=== PATIENT | female | born 1960 | race Caucasian/White ===

== ENCOUNTER → 2022-07-26 14:22 | Outpatient (BNVA) | payer MEDICARE, OTHER, SELFPAY | PROVIDERS: PCP Internal Medicine; Visit Provider Internal Medicine Pulmonary Disease | DX: J44.9 Chronic obstructive pulmonary disease, unspecified (principal); R91.8 Other nonspecific abnormal finding of lung field | CPT/HCPCS: 99212 ==

== ENCOUNTER 2022-09-02 15:00 | Outpatient (REF) | payer MEDICARE, OTHER, SELFPAY ==
--- NOTE | ~2022-09-02 | CT_ITS ---
EXAMINATION: CT CHEST WITHOUT CONTRAST CLINICAL INFORMATION: Follow-up pulmonary nodules COMPARISON: Previous chest CT April 2020 TECHNIQUE: Multidetector volumetric CT imaging of the chest was done. Axial MIP volume rendering provided. Sagittal and coronal reformatted images were obtained. This CT examination was performed using dose optimization techniques as appropriate, variously including the following: *Automated exposure control *Adjustment of mA and/or kV according to patient size (this includes techniques or standardized protocols for targeted exams where dose is matched to indication/reason for exam; i.e. extremities or head) *Use of iterative reconstruction technique DLP: 136 mGy-cm FINDINGS: LUNGS: There is question of slight interval increase in size in left lower lobe nodule measuring 5 mm axial image 358 series 7 compared to 4 mm on prior exam. There is a new 5 mm axial image 232 series 7 right upper lobe nodule probably related to bronchial soft tissue opacification. Otherwise bilateral pulmonary nodules are stable. There is evidence of mild paraseptal emphysema. There are scattered areas of bronchial wall thickening and soft tissue opacification. No endobronchial or endotracheal lesion. MEDIASTINUM: Coronary artery and aortic valve calcification. The mediastinum is otherwise normal. CORONARY ARTERY CALCIFICATION: Mild PLEURA: There is no pleural effusion. No pleural mass or thickening. AXILLA: No lymphadenopathy. UPPER ABDOMEN: Unremarkable. OSSEOUS STRUCTURES: Unremarkable. CT/CT chest wo IV con IMPRESSION: Question slight increase size now 5 mm left lower lobe nodule compared to 4 mm on prior exams. Otherwise bilateral pulmonary nodules are stable. Mild emphysema. Fleischner guidelines were followed.
== END 2022-09-02 15:01 | disposition home or self-care (01) ==
LOC: HO.CT 15:00
PROVIDERS: Visit Provider Internal Medicine Pulmonary Disease
DX: R91.8 Other nonspecific abnormal finding of lung field (principal)
CPT/HCPCS: 71250

== ENCOUNTER → 2022-09-03 15:03 | Outpatient (BNVA) | payer MEDICARE, OTHER, SELFPAY | PROVIDERS: PCP Internal Medicine; Referring Provider Internal Medicine; Visit Provider Internal Medicine | DX: K64.9 Unspecified hemorrhoids (principal); K62.5 Hemorrhage of anus and rectum; K59.02 Outlet dysfunction constipation | CPT/HCPCS: 99202 ==

== ENCOUNTER 2022-09-06 16:07 | Emergency (ER) | payer MEDICARE, OTHER, SELFPAY ==
--- NOTE | 2022-09-06 | ECG_ITS ---
Test Reason : SOB Blood Pressure : / mmHG Vent. Rate : 089 BPM Atrial Rate : 089 BPM P-R Int : 180 ms QRS Dur : 086 ms QT Int : 376 ms P-R-T Axes : 084 077 075 degrees QTc Int : 457 ms Normal sinus rhythm RSR' or QR pattern in V1 suggests right ventricular conduction delay Otherwise normal ECG No previous ECGs available Referred By: Generic ED Physician Electronically Signed By:MIN MARTINEZ MD
--- NOTE | ~2022-09-06 | XR_ITS ---
EXAMINATION: XR CHEST CLINICAL INFORMATION: Short of breath COMPARISON: CT 09/02/2022 TECHNIQUE: 2 views of the chest were obtained. FINDINGS: The lungs are well expanded. There is no focal consolidation, edema, or effusion. No pneumothorax. The cardiomediastinal silhouette is within normal limits of size with a calcified aorta. No acute osseous abnormality. XR/XR chest 2V IMPRESSION: No acute pulmonary finding.
[2022-09-06 16:10] VITALS: BP 150/80; PULSE 91; RESP 20; TEMP 37.1; O2SAT 98; BMI 23.9
[2022-09-06 16:28] LABS: MANUAL DIFF FLAG NO
[2022-09-06 16:30] LABS: Basophils Absolute Auto 0.1 X10*3/uL (0.0-0.2); Basophils Percent Auto 0.9 % (0-2); Eosinophils Absolute Auto 0.1 X10*3/uL (0.0-0.4); Eosinophils Percent Auto 2.2 % (0-4); Hematocrit 41.3 % (37.0-47.0); Hemoglobin 13.8 g/dl (12.0-16.0); Imm Gran Abs Auto 0.01 X10*3/uL (0.00-0.03); Imm Gran Pct Auto 0.2 % (0.0-0.4); Lymphocytes Absolute Auto 1.3 X10*3/uL (1.2-4.9); Lymphocytes Percent Auto 23.7 % (20-40); Mean Corpuscular HGB Conc 33.4 g/dl (31.0-35.0); Mean Corpuscular Hemoglobin 30.7 pg (27.0-33.0); Mean Platelet Volume 10.8 fL (9.4-12.3); Monocytes Absolute Auto 0.5 X10*3/uL (0.1-1.2); Monocytes Percent Auto 8.7 % (2-11); Neutrophils Absolute Auto 3.5 x10*3/uL (2.0-8.3); Neutrophils Percent Auto 64.3 % (45-73); Platelet Count 268 X10*3/uL (160-400); Red Blood Count 4.49 X10*6/uL (4.20-5.50); White Blood Count 5.5 X10*3/uL (4.8-10.8)
[2022-09-06 16:43] LABS: Anion Gap 15 (12-20); Blood Urea Nitrogen 13 mg/dL (9-16); Calcium 9.6 mg/dL (8.4-10.2); Carbon Dioxide 26 mmol/L (22-29); Chloride 106 mmol/L (96-108); Creatinine Clr Calc Pharmacy 71.2; Estimated Glomerular Filt Rate > 60; Glucose Random 91 mg/dL (60-115); Potassium 4.4 mmol/L (3.3-5.1); Sodium 143 mmol/L (135-145)
[2022-09-06 16:50] LABS: B Type Natriuretic Peptide 25 pg/mL (<100); Troponin-I High Sensitivity < 3.5 ng/L (<3.5-17.0)
== END 2022-09-06 22:34 | disposition left against medical advice (07) ==
PROVIDERS: Emergency Provider Emergency Medicine; PCP Internal Medicine
DX: R06.02 Shortness of breath (principal); Z79.899 Other long term (current) drug therapy
CPT/HCPCS: 36415; 71046; 80048; 83880; 84484; 85025; 93005; 94618; 99212; 99281; 99283

== ENCOUNTER 2023-06-11 10:01 | Outpatient (REF) | payer MEDICARE, MEDICAID, SELFPAY ==
[2023-06-11 14:31] LABS: Basophils Percent Auto 0.1 % (0-2); Hematocrit 44.8 % (37.0-47.0); Hemoglobin 14.8 g/dl (12.0-16.0); Imm Gran Abs Auto 0.04 X10*3/uL (0.00-0.03); Imm Gran Pct Auto 0.5 % (0.0-0.4); Lymphocytes Absolute Auto 0.5 X10*3/uL (1.2-4.9); Lymphocytes Percent Auto 6.6 % (20-40); MANUAL DIFF FLAG SCAN; Mean Corpuscular Hemoglobin 30.8 pg (27.0-33.0); Mean Corpuscular Volume 93.1 fL (80.0-98.0); Mean Platelet Volume 10.9 fL (9.4-12.3); Monocytes Absolute Auto 0.2 X10*3/uL (0.1-1.2); Monocytes Percent Auto 2.5 % (2-11); Neutrophils Absolute Auto 6.6 x10*3/uL (2.0-8.3); Neutrophils Percent Auto 90.3 % (45-73); Platelet Count 370 X10*3/uL (160-400); Red Blood Count 4.81 X10*6/uL (4.20-5.50); Red Cell Distribution Width 13.4 % (11.0-16.0); SCAN SMEAR FLAG 1; White Blood Count 7.3 X10*3/uL (4.8-10.8)
[2023-06-11 14:49] LABS: Estimated Average Glucose 103 mg/dL; Hemoglobin A1c % 5.2 %
[2023-06-11 14:59] LABS: SLIDE REVIEW VERIFIED
[2023-06-11 15:33] LABS: Alanine Aminotransferase 22 U/L (0-31); Albumin Level 4.2 g/dL (3.5-5.0); Alkaline Phosphatase 95 U/L (39-117); Anion Gap 16 (12-20); Aspartate Amino Transferase 21 U/L (5-31); Bilirubin Total 0.5 mg/dL (0.0-1.0); Blood Urea Nitrogen 12 mg/dL (9-16); Calcium 9.9 mg/dL (8.4-10.2); Carbon Dioxide 30 mmol/L (22-29); Chloride 101 mmol/L (96-108); Cholesterol 204 mg/dL; Estimated Glomerular Filt Rate > 60; Glucose Fasting 119 mg/dL (60-99); HDL Cholesterol 76 mg/dL; LDL Cholesterol Calculated 115 mg/dl; Potassium 4.1 mmol/L (3.3-5.1); Sodium 143 mmol/L (135-145); Total Protein 7.2 g/dL (6.5-8.0); Triglycerides 69 mg/dL
[2023-06-11 15:34] LABS: TSH reflex Free T4 0.36 uIU/mL (0.32-4.0)
[2023-06-14 19:44] LABS: HCV Log PCR <1.18 NOT DETECTED Log IU/mL (NOT DETECTED); HepC Viral Load <15 NOT DETECTED IU/mL (NOT DETECTED)
== END 2023-06-11 10:02 | disposition home or self-care (01) ==
LOC: HO.CHCLDS 10:01
PROVIDERS: Visit Provider Internal Medicine
DX: J41.8 Mixed simple and mucopurulent chronic bronchitis (principal); E64.0 Sequelae of protein-calorie malnutrition; F17.200 Nicotine dependence, unspecified, uncomplicated; Z86.39 Personal history of other endocrine, nutritional and metabolic disease
CPT/HCPCS: 36415; 80053; 80061; 83036; 84443; 85025; 87522

== ENCOUNTER 2025-05-11 10:12 | Outpatient (REF) | payer MEDICARE, MEDICAID, SELFPAY ==
--- OUTSIDE RECORDS SUMMARY | 2025-05-11 11:01 | XMS_ITS | Encounter Summary ---
Author Organization [employer] Address [address] [place] [address] Care Team Providers Care Environmental Services Associate Name Role Phone Darius Pink MD Primary Care Prov ider Encounter Details Date Type Department Care Team (Late st Contact Info) Description 04/30/2023 Orders Only [facility] [address] [place] [address] Julianne Mcgovern LPN Social History Tobacco Use Types Packs/Day Years Used Date Smoking Tobacco: Never Assessed Comments Unknown Sex and Gender Information Value Date Recorded Sex Assigned at Female 09/02/2022 10:24 AM EDT Legal Sex Female 10:24 AM EDT Gender Identity Female 09/02/2022 10:24 AM EDT Sexual Orientation Straight 09/02/2022 10 :24 AM EDT documented as of this encounter Plan of Treatment Not on file documented as of this encounter Procedures Procedure Name Priority Date/Time Associated Diagnosis Comments COMPREHENSIVE METABOLIC PANEL, FASTING Routine 06/11/2023 10:09 AM EDT SLIDE REVIEW Routine 06/11/2023 10:09 AM EDT documented in this encounter Results * (ABNORMAL) Comprehensive Metabolic Panel, Fasting (06/11/2023 10:09 AM EDT) Sodium 143 135 - 145 mmol/L [facility] Potassium 4.1 3.3 - 5.1 mmol/L [facility] Chloride 101 96 - 108 mmol/L [facility] Carbon Dioxide 30(H) 22 - 29 mmol/L [facility] Anion Gap 16 12 - 20 [facility] Urea Nitrogen (BUN) 12 9 - 16 mg/dL [facility] Creatinine, Serum 0.72 0.5 - 1.4 mg/dL [facility] Estimated Glomerular Filt Rate >60 [facility] Comment:NOTE: For -Am erican individuals, multiply the result by 1.210.Chronic Kidney Disease: Estimated GFR < 60 mL/min/[id number] Kidney Disease: Estimated GFR < 15 mL/min/1.73m2 Glucose Fasting 119(H) 60 - 99 mg/dL [facility] Comment:A fasting glucose fr om 100-125 mg/dl is considered impaired(pre-diabetes). Calcium 9.9 8.4 - 10.2 mg/dL [facility] Bilirubin, Total 0.5 0.0 - 1.0 mg/dL [facility] Aspartate Amino Transferase 21 5 - 31 U/L [facility] Alanine Aminotransferase 22 0 - 31 U/L [facility] Total Protein 7.2 6.5 - 8.0 g/dL [facility] Albumin Level 4.2 3.5 - 5.0 g/dL [facility] Alkaline Phosphatase 95 39 - 117 U/L [facility] 06/11/2023 10:0 9 AM EDT 06/11/2023 2:23 PM EDT us Darius Toussaint MD LAB BLOOD ORDERABL ES Final Result Performing Organization Address [facility] Co de Phone Number [facility] [address] [place] [phone] * Slide Review (06/11/2023 10:09 AM EDT) Slide Review VERIFIED [facility] 06/11/2023 10:0 9 AM EDT 06/11/2023 2:23 PM EDT Darius Toussaint MD LAB BLOOD ORDERABL ES Final Result Performing Organization Address [facility]/State/ZIP Co de Phone Number [facility] [address] [place] [address] [phone] documented in this encounter Visit Diagnoses Not on filedocumented in this encounter Care Teams Environmental Services Associate Relationship Specialty Start Date End Date Darius Pink MD [address] [place] [phone] PCP - General Internal Medicine 03/15/20 documented as of this encounter
--- OUTSIDE RECORDS SUMMARY | 2025-05-11 11:01 | XMS_ITS | Clinical Summary ---
Author Organization [facility] [address] [facility] Address [address] [place] [address] Phone Care Team Providers Care Chief Psychology Name Role Phone Darius Pink Primary Care Provide r Allergies No known active allergies Medications albuterol 2.5 mg/0.5 mL solution for nebulization nebulizer solution Inhale. Active amitriptyline (ELAVIL) 75 mg tablet Take by mouth at bedtime. Active budesonide-formot Javier (SYMBICORT) 80-4.5 mcg/actuation inhaler Inhale 2 puffs by mouth. Active carBAMazepine (TEGretol) 200 mg tablet Take 1 tablet (200 mg total) by mouth. Active divalproex (DEPAKOTE ER) 500 mg 24 hr tablet Take 1 tablet (500 mg total) by mouth daily. 4 Active furosemide (LASIX) 40 mg tablet Take 1 tablet (40 mg total) by mouth 1 (one) time each day. Active gabapentin (NEURONTIN) 300 mg capsule Take 1 capsule (300 mg total) by mouth 2 (two) times a day. Active omeprazole (PriLOSEC) [address] capsule Take 1 capsule (20 mg total) by mouth 1 (one) time each day. 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 08/04/2023 Absent pedal pulses 08/04/2023 Lumbar spine pain 08/04/2023 Asthma 08/04/2023 COPD (chronic obstructive pu lmonary disease) ([facility] [place], [facility] V28) 08/04/2023 Bilateral leg pain 06/11/2023 Overview (01/09/2024): Last Assessment & Plan: Chronic smoker with bilateral PVD dx changes, refers having pain on both extremities, will refer to vascular sx for evaluation for claudication 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 ([facility] [place]24, [facility] V28) 06/11/2023 Overview (01/09/2024): Last Assessment & Plan: Followed by pneumologist, she will start pulmonary rehab Smoker 06/11/2023 Snoring 06/11/2023 Overview (01/09/2024): Last Assessment & Plan: Will refer for sleep apnea Encounters Date Type Department Care Team Description 04/10/2025 8:41 AM EDT - 04/10/2025 11:59 PM EDT Hospital Encounter [facility] MRI [address] [place] [address] Discharge Disposition: Home or Self Care from Last 3 Months Surgical History Surgery Date Site/Laterality Comments OTHER SURGICAL HISTORY PROCEDURE: [place] CRANIOPLASTY SKULL DEFECT REPARATIVE BRAIN SURG; COMMENT: 2000- ruptured R cerebral aneurysm x2 Social History Tobacco Use Types Packs/Day Years Used Date Smoking Tobacco: Former Cigarettes 3 56 0 11/03/1962 - 11/03/2018 Comments Unknown Sex and Gender Information Value Date Recorded Sex Assigned at Female 12/28/2024 1:48 PM EST Legal Sex Female 11:15 PM EST Gender Identity Female 12/28/2024 1:48 PM EST Sexual Orientation Straight 12/28/2024 1: 48 PM EST Obstetrics History Last Filed Vital Signs Vital Sign Reading Time Taken Comments Blood Pressure 120/75 01/04/2025 3:12 PM EST Pulse 82 01/04/2025 3:12 PM EST Temperature 36.6 C (97.9 F) 01/04/2025 3:12 PM EST Respiratory Rate - - Oxygen Saturation 100% 01/04/2025 3:12 PM EST Inhaled Oxygen Concentration - - Weight 63 kg (139 lb) 01/04/2025 3:12 PM EST Height 162.6 cm (5' 4 ) 01/04/2025 3:12 PM EST Body Mass Index 23.86 01/04/2025 3:12 PM EST Plan of Treatment Health Maintenance Due Date Last Done Comments Breast Cancer Screening 1960 Diabetes: Annual GFR (Glomer ular Filtration Rate) 1958 Diabetes: Annual Foot Exam 1968 Diabetes: Annual Retina Eye Exam 1968 Zoster Vaccines (1 of 2) 2008 Pneumococcal Vaccine: 50+ Ye ars (2 of 2 - PCV) 01/24/2018 01/24/2017 RSV Immunization Adult Patie nts (1 - Risk 60-74 years 1-dose series) 2018 Hepatitis C Screening 10/06/2022 Lung Cancer Screening (Low D ose CT) 10/06/2022 Medicare Annual Wellness Visit 10/06/2022 Osteoporosis Screening (Bone Density Screening) 10/06/2022 Social Influencers of Health Screening 10/06/2022 Falls Risk Assessment 2023 COVID-19 Vaccine (1 - 2023-2 5 season) 2024 Diabetes: Annual Urine Albumin-Creatinine Ratio (uACR) 11/24/2024 Diabetes: Blood Sugar Contro l Test (HGBA1C) 11/24/2024 06/11/2023 Depression Screening 05/03/2025 05/03/2024 Influenza Vaccine (#1) 2025 09/11/2017 DTaP,Tdap,and Td Vaccines (2 - Td or Tdap) 01/24/2027 01/24/2017 Colorectal Cancer Screening: FIT-DNA (Cologuard) 06/07/2027 06/07/2024 Cholesterol Screening (Lipid Panel) 06/11/2028 06/11/2023 HIB Vaccines Aged Out No longer eligi ble based on patient's age to complete this topic HPV Vaccines Aged Out No longer eligi ble based on patient's age to complete this topic Hepatitis A Vaccines Aged Out No long er eligible based on patient's age to complete this topic Hepatitis B Vaccines Aged Out No long er eligible based on patient's age to complete this topic IPV Vaccines Aged Out No longer eligi ble based on patient's age to complete this topic MMR Vaccines Aged Out No longer eligi ble based on patient's age to complete this topic Meningococcal ACWY Vaccine Aged Out N o longer eligible based on patient's age to complete this topic Meningococcal B Vaccine Aged Out No l onger eligible based on patient's age to complete this topic RSV Immunization Patients Un jahaira 20 months Aged Out No longer eligible b ased on patient's age to complete this topic Varicella Vaccines Aged Out No longer eligible based on patient's age to complete this topic Procedures Procedure Name Priority Date/Time Associated Diagnosis Comments MR BRAIN WO CONTRAST Routine 04/10/2025 9:08 AM EDT Other symptoms and signs involving the musculoskeletal system from Last 3 Months Results * MR Brain wo Contrast (04/10/2025 9:08 AM EDT) Anatomical Region Laterality Modality Head and Neck Magnetic Resonan ce 04/10/2025 5:53 PM EDT Impressions 04/10/2025 5:57 PM EDT No acute infarct, mass, or intracranial hemorrhage. Unchanged left frontotemporal craniotomy with aneurysm clips at the left MCA bifurcation. 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 -------- FINAL REPORT -------- Dictated By: LEATHA BADILLO Dictated Date: 04/10/2025 17:53 ET Assigned Physician: LEATHA BADILLO Reviewed and Electronically Signed By: LEATHA BADILLO Signed Date: 04/10/2025 17:57 ET Workstation ID: [id number] Transcribed By: Self Edit Transcribed Date: 04/10/2025 17:53 ET Narrative 04/10/2025 5:57 PM EDT PROCEDURE: Brain MRI INDICATION: Hand stiffness TECHNIQUE: Multiplanar, multisequence MRI of the brain Without contrast. COMPARISON: Head CT 11/12/2020. FINDINGS: Left frontotemporal craniotomy with susceptibility artifact corresponding to aneurysm clips at the left MCA bifurcation. No acute infarct, mass effect, or intracranial hemorrhage. Old left frontal ventriculostomy catheter tract with surrounding gliosis. Minimal chronic small vessel ischemic change throughout the supratentorial white matter. Ventricles, sulci, and cisterns are normal in size and configuration. No hydrocephalus. Unchanged encephalomalacia and gliosis in the left inferior frontal and anterior temporal lobes related to old infarcts. Major intracranial arterial flow voids are within normal limits. Sinuses and mastoid air cells are clear. Bilateral lens implants. Orbits and extracranial soft tissues are otherwise normal. No marrow replacing lesions throughout the calvarium. Procedure Note Leatha Badillo MD - 04/10/2025 PROCEDURE: Brain MRI INDICATION: Hand stiffness TECHNIQUE: Multiplanar, multisequence MRI of the brain Without contrast. COMPARISON: Head CT 11/12/2020. FINDINGS: Left frontotemporal craniotomy with susceptibility artifact correspondingto aneurysm clips at the left MCA bifurcation. No acute infarct, mass effect, or intracranial hemorrhage. Old left frontal ventriculostomy catheter tract with surrounding gliosis.Minimal chronic small vessel ischemic change throughout the supratentorialwhite matter. Ventricles, sulci, and cisterns are normal in size and configuration. Nohydrocephalus. Unchanged encephalomalacia and gliosis in the left inferior frontal andanterior temporal lobes related to old infarcts. Major intracranial arterial flow voids are within normal limits. Sinuses and mastoid air cells are clear. Bilateral lens implants. Orbits and extracranial soft tissues areotherwise normal. No marrow replacing lesions throughout the calvarium. IMPRESSION: No acute infarct, mass, or intracranial hemorrhage. Unchanged left frontotemporal craniotomy with aneurysm clips at the leftMCA bifurcation. Unchanged chronic encephalomalacia and gliosis in theleft frontal and temporal lobes related to old infarcts. -------- FINAL REPORT -------- Dictated By: LEATHA BADILLO Dictated Date: 04/10/2025 17:53 ET Assigned Physician: LEATHA BADILLO Reviewed and Electronically Signed By: LEATHA BADILLO Signed Date: 04/10/2025 17:57 ET Workstation ID: [id number] Transcribed By: Self Edit Transcribed Date: 04/10/2025 17:53 ET Darius Toussaint IMG MRI PROCEDURES Fi nal Result from Last 3 Months Insurance MEDICAID - [place] MEDICARE Care Teams Chief Psychology Relationship Specialty Start Date End Date Darius Pink [address] [place], [place] PCP - General 08/04/23
--- OUTSIDE RECORDS SUMMARY | 2025-05-11 11:02 | XMS_ITS ---
Author Name [facility] Organization Unknown History of Medication Use Medication Directions Dispensed Refills Start Date End Date Stat us divalproex (DEPAKOTE ER) 500 mg 24 hr tablet Take 1 tablet (500 mg total) by mouth daily. 12/04/2023 active albuterol HFA (ProAir HFA) 90 mcg/actuation inhaler INHALE TWO PUFFS FOUR TO SIX TIMES DAILY 03/27/2023 active albuterol 2.5 mg/0.5 mL solution for nebulization nebulizer solution Inhale. active amitriptyline (ELAVIL) 75 mg tablet Take by mouth at bedtime. active budesonide-formoteroL (SYMBICORT) 80-4.5 mcg/actuation inhaler Inhale 2 puffs. active carBAMazepine (TEGretol) 200 mg tablet Take 1 tablet (200 mg total) by mouth. active furosemide (LASIX) 40 mg tablet Take 1 tablet (40 mg total) by mouth 1 (one) time each day. active gabapentin (NEURONTIN) 300 mg capsule Take 1 capsule (300 mg total) by mouth 2 (two) times a day. active omeprazole (PriLOSEC) [address] capsule Take 1 capsule (20 mg total) by mouth 1 (one) time each day. 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 active 2023-08-04 ProblemAct [facility]_THSFRAN Bilateral leg pain active 2023-06-11 ProblemAct CT_THS[facility]AN Asthma active 2023-08-04 ProblemAct CT_THSFR AN Centrilobular emphysema (CMS/HCC) active EncounterDiagnosisAct CT_THSFRAN Mixed simple and mucopurulent chronic bronchitis active 2023-06-11 ProblemAct CT_THSFRA N COPD (chronic obstructive pulmonary disease) active 2023-08-04 ProblemAct CT_THSFRA N Snoring active 2023-06-11 ProblemAct CT_THSFR AN Lumbar spine pain active 2023-08-04 ProblemAct CT_THSFRAN Smoker active 2023-06-11 ProblemAct CT_THSFR AN Hx of spontaneous subarachnoid intracranial hemorrhage due to cerebral aneurysm active 2024-01-09 ProblemAct CT_THSFRAN
[2025-05-11 16:17] LABS: MANUAL DIFF FLAG NO
[2025-05-11 16:20] LABS: Hematocrit 43.6 % (37.0-47.0); Hemoglobin 14.2 g/dl (12.0-16.0); Imm Gran Abs Auto 0.04 X10*3/uL (0.00-0.03); Imm Gran Pct Auto 0.9 % (0.0-0.4); Lymphocytes Absolute Auto 1.0 X10*3/uL (1.2-4.9); Mean Corpuscular HGB Conc 32.6 g/dl (31.0-35.0); Mean Corpuscular Hemoglobin 30.3 pg (27.0-33.0); Mean Corpuscular Volume 93.0 fL (80.0-98.0); NRBC Abs Auto 0.000 X10*3/uL (0.0-0.012); NRBC Pct Auto 0.0 /100WBC (0.0-0.2); Platelet Count 308 X10*3/uL (160-400); Red Blood Count 4.69 X10*6/uL (4.20-5.50); White Blood Count 4.6 X10*3/uL (4.8-10.8)
[2025-05-11 16:42] LABS: Hemoglobin A1C 130.1497 umol/L; Total Hemoglobin (HGBA1C) 3768.5448 umol/L
[2025-05-11 16:45] LABS: Alanine Aminotransferase 23 U/L (0-31); Albumin Level 4.5 g/dL (3.5-5.0); Alkaline Phosphatase 85 U/L (39-117); Anion Gap 13 (12-20); Aspartate Amino Transferase 28 U/L (5-31); Blood Urea Nitrogen 12 mg/dL (9-16); Calcium 9.1 mg/dL (8.4-10.2); Carbon Dioxide 30 mmol/L (22-29); Chloride 104 mmol/L (96-108); Cholesterol 200 mg/dL (<200); Estimated Glomerular Filt Rate > 60; HDL Cholesterol 60 mg/dL (>40); Potassium 3.9 mmol/L (3.3-5.1); Sodium 143 mmol/L (135-145); Total Protein 7.2 g/dL (6.5-8.0); Triglycerides 82 mg/dL (<150)
== END 2025-05-11 10:13 | disposition home or self-care (01) ==
LOC: HO.CHCLDS 10:12
PROVIDERS: Visit Provider Internal Medicine
DX: E11.9 Type 2 diabetes mellitus without complications (principal)
CPT/HCPCS: 36415; 80053; 80061; 83036; 84443; 85025